=== PATIENT | female | born 1980 | race Two or more races ===

== ENCOUNTER 2022-12-27 10:19 | Inpatient (IN) | payer OTHER ==
[2022-12-27 10:59] VITALS: BMI 37.8
[2022-12-27] MEDS ORDERED: LOPERAMIDE HCL 2 MG CAPSULE PO PRN (11:43)
[2022-12-27] MEDS ORDERED: BISMUTH SUBSALICYLATE 524 MG/30 ML PO PRN (11:43)
[2022-12-27] MEDS ORDERED: guaiFENesin 600 MG TABLET.ER (FP) PO PRN (11:43)
[2022-12-27] MEDS ORDERED: POLYETHYLENE GLYCOL (HEALTHYLAX) 3350 17 GM PACKET PO PRN (11:43)
[2022-12-27] MEDS ORDERED: IBUPROFEN 600 MG TABLET (FP) PO PRN (11:43)
[2022-12-27] MEDS ORDERED: NICOTINE POLACRILEX 2 MG GUM BUC PRN (11:43)
[2022-12-27] MEDS ORDERED: MAG HYDROX/AL HYDROX/SIMETH 30 ML UNIT-DOSE CUP PO PRN (11:43)
[2022-12-27] MEDS ORDERED: IBUPROFEN 400 MG TABLET (FP) PO PRN (11:43)
[2022-12-27] MEDS ORDERED: BENZOCAINE/MENTHOL (CHLORASEPTIC ) LOZENGE MM PRN (11:43)
[2022-12-27] MEDS ORDERED: BENZONATATE 200 MG CAPSULE PO PRN (11:43)
[2022-12-27] MEDS ORDERED: DICYCLOMINE HCL 10 MG CAPSULE PO PRN (11:43)
[2022-12-27] MEDS ORDERED: MAGNESIUM HYDROX 2400MG/30ML ORAL SUSPENSION 30 ML CUP PO PRN (11:43)
[2022-12-27] MEDS ORDERED: diazePAM 5 MG TABLET PO ONE (13:15)
[2022-12-27] MEDS ORDERED: diazePAM 5 MG TABLET ONE (13:28)
[2022-12-27] MEDS: diazePAM 5 MG TABLET PO SCH ×2 (17:37→22:05)
[2022-12-27] MEDS: traZODone HCL 50 MG TABLET (FP) PO SCH (22:05)
[2022-12-27] MEDS: THIAMINE HCL 100 MG TABLET (FP) PO SCH (22:05)
[2022-12-27] MEDS: MELATONIN 5 MG TABLETS PO SCH (22:05)
[2022-12-28] MEDS: diazePAM 5 MG TABLET PO SCH ×4 (05:46→22:15)
[2022-12-28] MEDS: PRENATAL VITAMINS W/ FOLIC ACID TABLET (FP) PO SCH (10:13)
[2022-12-28] MEDS: METHOCARBAMOL 500 MG TABLET PO PRN ×2 (10:13→22:18)
[2022-12-28] MEDS: hydrOXYzine PAMOATE 25 MG CAPSULE (FP) PO PRN ×2 (10:14→18:31)
[2022-12-28] MEDS: ONDANSETRON *ODT* 4 MG TABLET SL PRN (10:14)
[2022-12-28 11:51] LABS: POTASSIUM 4.1 mmol/L (3.5-5.1)
[2022-12-28 11:54] LABS: HEMATOCRIT 41.9 % (32.4-45.2); HEMOGLOBIN 13.8 GM/dL (10.7-15.3); MCH 29.1 pg (25.7-33.7); MCHC 33.1 g/dl (32.0-36.0); MEAN CELL VOLUME 87.8 fl (80-96); MEAN PLT VOLUME 10.2 fl (7.5-11.1); PLATELET COUNT 247 10^3/uL (134-434); RBC 4.76 M/mm3 (3.60-5.2); WHITE BLOOD COUNT 6.8 K/mm3 (4.0-10.0)
[2022-12-28 11:56] LABS: BLOOD UREA NITROGEN 7.6 mg/dL (7-18); CALCIUM 9.2 mg/dL (8.5-10.1)
[2022-12-28 11:57] LABS: ALBUMIN 3.7 g/dl (3.4-5.0)
[2022-12-28 11:59] LABS: CREATININE 0.7 mg/dL (0.55-1.3)
[2022-12-28] MEDS ORDERED: PNEUMOC 20-VAL CONJ-DIP CRM/PF 0.5 ML SYRINGE IM ONE (12:00)
[2022-12-28 12:01] LABS: TOT PROT 7.8 g/dl (6.4-8.2)
[2022-12-28 12:57] LABS: HIV INTERPRETATION NEGATIVE (NEGATIVE)
[2022-12-28] MEDS: traZODone HCL 50 MG TABLET (FP) PO SCH (22:15)
[2022-12-28] MEDS: THIAMINE HCL 100 MG TABLET (FP) PO SCH (22:15)
[2022-12-28] MEDS: MELATONIN 5 MG TABLETS PO SCH (22:16)
[2022-12-29] MEDS: diazePAM 5 MG TABLET PO SCH ×3 (05:26→22:06)
[2022-12-29] MEDS: ACETAMINOPHEN 325 MG TABLET (FP) PO PRN ×2 (05:27→19:06)
[2022-12-29] MEDS: PRENATAL VITAMINS W/ FOLIC ACID TABLET (FP) PO SCH (09:39)
[2022-12-29] MEDS ORDERED: BISACODYL 5 MG TABLET.DR (FP) PO ONE (10:30)
[2022-12-29] MEDS: hydrOXYzine PAMOATE 25 MG CAPSULE (FP) PO PRN (11:23)
[2022-12-29] MEDS: ONDANSETRON *ODT* 4 MG TABLET SL PRN (11:23)
[2022-12-29] MEDS: diazePAM 5 MG TABLET PO PRN (19:06)
[2022-12-29] MEDS: MELATONIN 5 MG TABLETS PO SCH (22:06)
[2022-12-29] MEDS: THIAMINE HCL 100 MG TABLET (FP) PO SCH (22:06)
[2022-12-29] MEDS: traZODone HCL 50 MG TABLET (FP) PO SCH (22:06)
[2022-12-30] MEDS: diazePAM 5 MG TABLET PO SCH ×2 (05:48→17:32)
[2022-12-30] MEDS: hydrOXYzine PAMOATE 25 MG CAPSULE (FP) PO PRN (08:42)
[2022-12-30] MEDS: PRENATAL VITAMINS W/ FOLIC ACID TABLET (FP) PO SCH (09:53)
[2022-12-30] MEDS: diazePAM 5 MG TABLET PO PRN (09:54)
[2022-12-30 13:24] VITALS: RESP 18
[2022-12-30] MEDS: METHOCARBAMOL 500 MG TABLET PO PRN (15:27)
[2022-12-30] MEDS: traZODone HCL 50 MG TABLET (FP) PO SCH (21:54)
[2022-12-30] MEDS: MELATONIN 5 MG TABLETS PO SCH (21:54)
[2022-12-30] MEDS: THIAMINE HCL 100 MG TABLET (FP) PO SCH (21:55)
[2022-12-31] MEDS: hydrOXYzine PAMOATE 25 MG CAPSULE (FP) PO PRN (05:33)
[2022-12-31] MEDS ORDERED: diazePAM 5 MG TABLET PO ONE (06:00)
[2022-12-31] MEDS: PRENATAL VITAMINS W/ FOLIC ACID TABLET (FP) PO SCH (09:40)
[2022-12-31] MEDS: METHOCARBAMOL 500 MG TABLET PO PRN (12:19)
[2022-12-31 12:46] VITALS: BP 139/83; PULSE 112; TEMP 97.6
== END 2022-12-31 14:06 | disposition other institution (70) | DRG 775 ==
LOC: YASAS 10:19 → Y3N 13:41
PROVIDERS: ADMIT Allergy & Immunology; ATTEND Surgery
PROC: HZ2ZZZZ Detoxification Services for Substance Abuse Treatment (ICD-10-PCS; principal; 2022-12-27)
DX: F10.230 Alcohol dependence with withdrawal, uncomplicated (principal); F17.210 Nicotine dependence, cigarettes, uncomplicated; F10.282 Alcohol dependence with alcohol-induced sleep disorder; F10.24 Alcohol dependence with alcohol-induced mood disorder; E78.5 Hyperlipidemia, unspecified; Z91.410 Personal history of adult physical and sexual abuse
CPT/HCPCS: 36415; 80053; 80305; 81025; 85027; 86780; 87389; 87635; 87811; 90677; Q0162